=== PATIENT | male | born 1990 | race African-American/Black ===

== ENCOUNTER → 2017-03-27 | Outpatient (CLI) | payer OTHER ==
[2017-03-29 12:45] LABS: ACROSOM DEFECT 15.5 %; GRADE 3.5 (>=2.5); HEAD SHAPE ABNORMAL 21.5 %; MOTILE/mL 13.6 x10(6) (>=6.0); MOTILITY 46 % (>=40); SEMEN CONTAINER TYPE 50 mL Conical; SPERM/ML 29.6 x10(6) (>=15.0); STRICT MORPH % NORMAL 2.5 % (>=4.5); STUDY TYPE Semen; TAIL ABNORMAL 34.5 %
== END ==
LOC: CLAB 10:54
PROVIDERS: ATTEND Legal Medicine
DX: Z31.41 Encounter for fertility testing (principal)
CPT/HCPCS: 89322